=== PATIENT | female | born 1970 | race American Indian/Alaskan Native ===

== ENCOUNTER 2021-10-06 08:41 | Outpatient (CLI) | payer BC ==
--- NOTE | 2021-10-06 10:18 | Treadmill Report ---
DATE OF SERVICE: 10/06/2021 TREADMILL STRESS TEST REFERRING PHYSICIAN: Dr. Elana Barrera. PROTOCOL: The patient was assessed in postabsorptive state and she was exercised under standard Silvino protocol treadmill. Baseline EKG reveals normal sinus rhythm, LVH, single PVC. The patient exercised for a total of 6 minutes and 40 seconds to achieve 90% of target heart rate. Peak heart rate of 152, no diagnostic ST changes, arrhythmias, or chest pain during stress or recovery. Occasional PVCs are noted. CONCLUSIONS: 1. Normal exercise stress test without evidence of diagnostic ST changes, arrhythmias, or chest pain during stress or recovery. 2. Occasional PVCs during stress and recovery. 3. Average exercise tolerance. 4. Appropriate heart rate/blood pressure response in recovery. TID: [id number] RECEIPT: [id number] JUAN ANTONIO
--- NOTE | 2021-10-06 11:06 | Treadmill Report ---
[facility] Test Date: 2021-10-06 Test Time: 09:42:00 Pat Name: NIRU MERINO Department: Room: Gender: F Uke Operator: Isabel Sullivan : 1970 Requested By: JOYCE ARCINIEGA Order Number: [id number] Reading MD: Gilmer Arciniega Interpretive Statements Electronically Signed On 10-06-2021 11:05:56 EST by Gilmer Arciniega
== END 2021-10-06 08:42 | disposition home or self-care (01) ==
LOC: CARD 08:41
PROVIDERS: ATTEND Specialist
DX: Z01.818 Encounter for other preprocedural examination (principal); I50.22 Chronic systolic (congestive) heart failure; I10 Essential (primary) hypertension; E66.01 Morbid (severe) obesity due to excess calories
CPT/HCPCS: 93017